=== PATIENT | male | born 1960 | race Caucasian/White ===

== ENCOUNTER 2021-09-18 15:24 | Emergency (ER) | payer BC ==
[2021-09-18] MEDS ORDERED: Boostrix 0.5 ML (Tdap) VIAL ONE (16:28)
[2021-09-18] MEDS ORDERED: HYDROcodone/Acetaminophen 5/325 mg Tablet ONE (16:28)
[2021-09-18] MEDS ORDERED: Bacitracin 1 PK ONE (16:28)
[2021-09-18] MEDS ORDERED: Ibuprofen 800 MG TAB ONE (16:43)
== END 2021-09-18 16:50 | disposition home or self-care (01) ==
LOC: MADERS 15:24
DX: S80.811A Abrasion, right lower leg, initial encounter (principal); I10 Essential (primary) hypertension; E78.5 Hyperlipidemia, unspecified; K21.9 Gastro-esophageal reflux disease without esophagitis; F17.220 Nicotine dependence, chewing tobacco, uncomplicated; W22.8XXA Striking against or struck by other objects, initial encounter; Z23 Encounter for immunization; Z79.899 Other long term (current) drug therapy
CPT/HCPCS: 90471; 90715